=== PATIENT | male | born 1965 | race Caucasian/White ===

== ENCOUNTER 2025-04-07 08:43 | Emergency (ER) | payer OTHER ==
[2025-04-07 08:59] VITALS: BP 164/86; PULSE 95; RESP 17; TEMP 97.9; BMI 31.6
[2025-04-07] MEDS ORDERED: ACETAMINOPHEN 500 MG TABLET (FP) ONE (09:07)
[2025-04-07] MEDS ORDERED: IBUPROFEN 600 MG TABLET (FP) PO ONE (09:08)
[2025-04-07] MEDS ORDERED: DIPHTH,PERTUSS(ACELL),TET 0.5 ML DISP.SYRIN IM ONE (09:08)
[2025-04-07] MEDS: IBUPROFEN 600 MG TABLET (FP) PO ONE (09:09)
[2025-04-07] MEDS: ACETAMINOPHEN 500 MG TABLET (FP) PO ONE (09:09)
[2025-04-07] MEDS: DIPHTH,PERTUSS(ACELL),TET 0.5 ML DISP.SYRIN IM ONE (09:10)
[2025-04-07] MEDS: BACITRACIN ZINC 15 GM TUBE TOPICAL OINTMENT TP ONE (09:17)
== END 2025-04-07 10:58 | disposition home or self-care (01) ==
LOC: FER 08:43
PROC: 2W3CX1Z Immobilization of Right Lower Arm using Splint (ICD-10-PCS; principal; 2025-04-07)
PROC: 3E0234Z Introduction of Serum, Toxoid and Vaccine into Muscle, Percutaneous Approach (ICD-10-PCS; 2025-04-07)
DX: S20.211A Contusion of right front wall of thorax, initial encounter (principal); S80.211A Abrasion, right knee, initial encounter; S60.511A Abrasion of right hand, initial encounter; M25.531 Pain in right wrist; Z23 Encounter for immunization; W01.0XXA Fall on same level from slipping, tripping and stumbling without subsequent striking against object, initial encounter; Y92.480 Sidewalk as the place of occurrence of the external cause
CPT/HCPCS: 71101-TC-RT-FY; 73110-TC-RT-FY; 73130-TC-RT-FY; 90715; 99284-25